=== PATIENT | male | born 1945 | race Asian ===

== ENCOUNTER 2020-12-17 21:53 | Inpatient (IN) | payer BC, OTHER ==
[2020-12-17] MEDS ORDERED: ACETAMINOPHEN 1000 MG/100 ML VIAL (NON FORMULARY) IVPB ONE (22:22)
[2020-12-17] MEDS ORDERED: ONDANSETRON 4 MG/2 ML VIAL IVPUSH ONE (22:22)
[2020-12-17] MEDS ORDERED: ACETAMINOPHEN INJECTION 100 ML IVPB ONE (22:57)
[2020-12-17] MEDS ORDERED: ONDANSETRON 4 MG/2 ML VIAL ONE (22:57)
[2020-12-17 23:07] LABS: BASO % 0.2 % (0-2.0); EOS % 1.7 % (0-4.5); HEMATOCRIT 40.2 % (35.4-49); HEMOGLOBIN 13.9 GM/dL (11.7-16.9); LYMPH % 17.6 % (8-40); MCH 32.8 pg (25.7-33.7); MCHC 34.5 g/dl (32.0-35.9); MEAN CELL VOLUME 94.9 fl (80-96); MEAN PLT VOLUME 7.8 fl (7.5-11.1); MONO % 6.6 % (3.8-10.2); NEUT % 73.9 % (42.8-82.8); PLATELET COUNT 226 K/MM3 (134-434); RBC 4.24 M/mm3 (4.00-5.60); RDW 12.9 % (11.9-15.9)
[2020-12-17 23:37] LABS: CHLORIDE 106 mmol/L (98-107); SODIUM 140 mmol/L (136-145)
[2020-12-17 23:39] LABS: ALBUMIN 3.8 g/dl (3.4-5.0); ANION GAP 8 MMOL/L (8-16); BLOOD UREA NITROGEN 19.8 mg/dL (7-18); CALCIUM 8.7 mg/dL (8.5-10.1); CO2 26 mmol/L (21-32); GLUCOSE,RANDOM 198 mg/dL (74-106)
[2020-12-17 23:40] LABS: LIPASE 136 U/L (73-393)
[2020-12-17 23:43] LABS: CREATININE 0.9 mg/dL (0.55-1.3); SGOT/AST 102 U/L (15-37); SGPT/ALT 84 U/L (13-61)
[2020-12-17 23:44] LABS: BILIRUBIN,TOTAL 0.9 mg/dL (0.2-1); TOT PROT 7.2 g/dl (6.4-8.2)
[2020-12-17] MEDS ORDERED: FAMOTIDINE 20 MG/50 ML IVPB 20 MG/50 ML MG IVPB ONE ×2 (23:45→23:52)
[2020-12-17] MEDS ORDERED: morphine CARPU-JECT 4 MG/1 ML DISP.SYRIN IVPUSH ONE (23:45)
[2020-12-17] MEDS ORDERED: LIDOCAINE VISCOUS 2% ORAL/TOP 20 ML UNIT-DOSE CUP MM ONE (23:45)
[2020-12-17] MEDS ORDERED: MAG HYDROX/AL HYDROX/SIMETH 30 ML UNIT-DOSE CUP PO ONE (23:45)
[2020-12-17 23:46] LABS: ALK PHOS 93 U/L (45-117)
[2020-12-17] MEDS ORDERED: morphine SULFATE 4 MG/ML VIAL ONE (23:51)
[2020-12-17] MEDS ORDERED: LIDOCAINE VISCOUS 2% ORAL/TOP 20 ML UNIT-DOSE CUP ONE (23:51)
[2020-12-17] MEDS ORDERED: MAG HYDROX/AL HYDROX/SIMETH 30 ML UNIT-DOSE CUP ONE (23:52)
[2020-12-18 00:48] LABS: LACTIC ACID 2.1 mmol/L (0.4-2.0)
[2020-12-18] MEDS ORDERED: LACTATED RINGERS SOLUTION 1000 ML INFUS.BAG IV STA (01:10)
[2020-12-18] MEDS ORDERED: ONDANSETRON 4 MG/2 ML VIAL IM PRN (06:48)
[2020-12-18] MEDS ORDERED: MAG HYDROX/AL HYDROX/SIMETH 30 ML UNIT-DOSE CUP PO PRN (06:49)
[2020-12-18 10:28] LABS: BASO % 0.2 % (0-2.0); EOS % 1.6 % (0-4.5); HEMATOCRIT 39.9 % (35.4-49); HEMOGLOBIN 13.7 GM/dL (11.7-16.9); LYMPH % 9.8 % (8-40); MCH 32.9 pg (25.7-33.7); MCHC 34.3 g/dl (32.0-35.9); MEAN CELL VOLUME 95.8 fl (80-96); MEAN PLT VOLUME 7.8 fl (7.5-11.1); MONO % 5.5 % (3.8-10.2); NEUT % 82.9 % (42.8-82.8); PLATELET COUNT 216 K/MM3 (134-434); RBC 4.17 M/mm3 (4.00-5.60); WHITE BLOOD COUNT 9.1 K/mm3 (4.0-10.0)
[2020-12-18] MEDS ORDERED: SODIUM CHLORIDE 500 ML IV STA (10:43)
[2020-12-18 11:06] LABS: CALCIUM 8.7 mg/dL (8.5-10.1)
[2020-12-18 11:07] LABS: ALBUMIN 3.3 g/dl (3.4-5.0); BLOOD UREA NITROGEN 17.6 mg/dL (7-18)
[2020-12-18 11:11] LABS: TOT PROT 6.6 g/dl (6.4-8.2)
[2020-12-18] MEDS ORDERED: SODIUM CHLORIDE 1,000 ML IV SCH (13:45)
[2020-12-18] MEDS ORDERED: MINERAL OIL ENEMA 133 ML ENEMA PR ONE (16:00)
[2020-12-18] MEDS: ENOXAPARIN NA (PORCINE) 40 MG/0.4 ML DISP.SYRIN SQ SCH (18:34)
[2020-12-18 20:18] VITALS: BMI 25.4
[2020-12-18] MEDS ORDERED: PT OWN MED DRAWER 7, Y5N ONE (21:42)
[2020-12-18] MEDS: POLYETHYLENE GLYCOL 3350 119 GM BTL PO SCH (22:32)
[2020-12-19] MEDS ORDERED: PT OWN MED DRAWER 7, Y5N ONE (02:22)
[2020-12-19] MEDS: POLYETHYLENE GLYCOL 3350 119 GM BTL PO SCH ×3 (06:06→21:22)
[2020-12-19 09:00] LABS: BASO % 0.2 % (0-2.0); EOS % 5.1 % (0-4.5); HEMATOCRIT 37.3 % (35.4-49); HEMOGLOBIN 12.8 GM/dL (11.7-16.9); LYMPH % 21.1 % (8-40); MCH 32.6 pg (25.7-33.7); MCHC 34.5 g/dl (32.0-35.9); MEAN CELL VOLUME 94.7 fl (80-96); MEAN PLT VOLUME 7.7 fl (7.5-11.1); MONO % 9.2 % (3.8-10.2); NEUT % 64.4 % (42.8-82.8); PLATELET COUNT 212 K/MM3 (134-434); RBC 3.93 M/mm3 (4.00-5.60); RDW 13.2 % (11.9-15.9); WHITE BLOOD COUNT 7.2 K/mm3 (4.0-10.0)
[2020-12-19] MEDS ORDERED: PEG 3350/NA SULF BICARB CL/KCL 4000 ML SOLN.RECON PO ONE (09:00)
[2020-12-19 09:24] LABS: CHLORIDE 108 mmol/L (98-107); SODIUM 138 mmol/L (136-145)
[2020-12-19 09:27] LABS: ALBUMIN 3.1 g/dl (3.4-5.0); CALCIUM 7.8 mg/dL (8.5-10.1)
[2020-12-19 09:28] LABS: ANION GAP 7 MMOL/L (8-16); BLOOD UREA NITROGEN 14.3 mg/dL (7-18); CO2 24 mmol/L (21-32); GLUCOSE,RANDOM 116 mg/dL (74-106); MAGNESIUM 1.9 mg/dL (1.8-2.4)
[2020-12-19 09:31] LABS: BILIRUBIN,DIRECT 0.5 mg/dL (0.0-0.2); CREATININE 0.8 mg/dL (0.55-1.3); PHOSPHOROUS 2.2 mg/dL (2.5-4.9); SGOT/AST 73 U/L (15-37); SGPT/ALT 150 U/L (13-61)
[2020-12-19 09:32] LABS: BILIRUBIN,TOTAL 1.2 mg/dL (0.2-1)
[2020-12-19 09:33] LABS: ALK PHOS 86 U/L (45-117)
[2020-12-19] MEDS: ENOXAPARIN NA (PORCINE) 40 MG/0.4 ML DISP.SYRIN SQ SCH (10:54)
[2020-12-19] MEDS ORDERED: BISACODYL 5 MG TABLET.DR (FP) PO ONE (18:00)
[2020-12-20] MEDS: POLYETHYLENE GLYCOL 3350 119 GM BTL PO SCH ×2 (05:45→14:14)
[2020-12-20 08:30] LABS: BASO % 0.4 % (0-2.0); EOS % 6.3 % (0-4.5); HEMATOCRIT 41.1 % (35.4-49); HEMOGLOBIN 14.2 GM/dL (11.7-16.9); LYMPH % 25.3 % (8-40); MCH 33.1 pg (25.7-33.7); MCHC 34.6 g/dl (32.0-35.9); MEAN CELL VOLUME 95.4 fl (80-96); MEAN PLT VOLUME 7.6 fl (7.5-11.1); MONO % 9.5 % (3.8-10.2); NEUT % 58.5 % (42.8-82.8); PLATELET COUNT 245 K/MM3 (134-434); RBC 4.31 M/mm3 (4.00-5.60); RDW 13.1 % (11.9-15.9); WHITE BLOOD COUNT 6.8 K/mm3 (4.0-10.0)
[2020-12-20 08:49] LABS: MAGNESIUM 2.1 mg/dL (1.8-2.4)
[2020-12-20 08:52] LABS: CALCIUM 8.7 mg/dL (8.5-10.1); PHOSPHOROUS 2.7 mg/dL (2.5-4.9)
[2020-12-20 08:53] LABS: ALBUMIN 3.5 g/dl (3.4-5.0); BLOOD UREA NITROGEN 14.2 mg/dL (7-18)
[2020-12-20 08:54] LABS: BILIRUBIN,DIRECT 0.3 mg/dL (0.0-0.2)
[2020-12-20 08:56] LABS: CREATININE 0.9 mg/dL (0.55-1.3)
[2020-12-20 08:57] LABS: BILIRUBIN,TOTAL 0.9 mg/dL (0.2-1); TOT PROT 7.3 g/dl (6.4-8.2)
[2020-12-20 12:10] LABS: TRANSGLUTAMINASE IGA < 2 U/mL (0-3); TRANSGLUTAMINASE IGG 4 U/mL (0-5)
[2020-12-20] MEDS ORDERED: NAPH,MB-DB/K PH,MBDB POWDER PACKET PO ONE (14:42)
[2020-12-20] MEDS ORDERED: SENNOSIDES 8.6MG TABLET (FP) PO PRN (18:55)
[2020-12-21 09:06] LABS: BASO % 0.4 % (0-2.0); EOS % 5.9 % (0-4.5); HEMOGLOBIN 13.7 GM/dL (11.7-16.9); MCH 33.2 pg (25.7-33.7); MCHC 35.1 g/dl (32.0-35.9); MEAN CELL VOLUME 94.7 fl (80-96); MEAN PLT VOLUME 7.7 fl (7.5-11.1); MONO % 10.9 % (3.8-10.2); NEUT % 52.8 % (42.8-82.8); PLATELET COUNT 241 K/MM3 (134-434); RBC 4.12 M/mm3 (4.00-5.60); WHITE BLOOD COUNT 5.9 K/mm3 (4.0-10.0)
[2020-12-21] MEDS: ENOXAPARIN NA (PORCINE) 40 MG/0.4 ML DISP.SYRIN SQ SCH (09:16)
[2020-12-21 09:39] VITALS: BP 130/73; PULSE 75; TEMP 97.9
[2020-12-21 09:41] LABS: CREATININE 0.8 mg/dL (0.55-1.3); PHOSPHOROUS 3.5 mg/dL (2.5-4.9)
[2020-12-21 09:42] LABS: BILIRUBIN,TOTAL 0.7 mg/dL (0.2-1)
[2020-12-21 09:43] LABS: TOT PROT 6.5 g/dl (6.4-8.2)
[2020-12-21 09:46] LABS: ALBUMIN 3.2 g/dl (3.4-5.0)
[2020-12-21 09:47] LABS: CALCIUM 8.6 mg/dL (8.5-10.1)
[2020-12-21 09:48] LABS: BLOOD UREA NITROGEN 13.7 mg/dL (7-18)
[2020-12-21 09:50] LABS: BILIRUBIN,DIRECT 0.3 mg/dL (0.0-0.2)
[2020-12-21] MEDS ORDERED: POLYETHYLENE GLYCOL 3350 119 GM BTL PO SCH (10:00)
== END 2020-12-21 15:50 | disposition home or self-care (01) | DRG 389 ==
LOC: JER 21:53 → JERBED 12-18 05:00 → J5S 12-18 16:19
PROVIDERS: ADMIT Hospitalist; ATTEND Internal Medicine
PROC: 0DBL8ZX Excision of Transverse Colon, Via Natural or Artificial Opening Endoscopic, Diagnostic (ICD-10-PCS; 2020-12-20)
PROC: 0DBN8ZX Excision of Sigmoid Colon, Via Natural or Artificial Opening Endoscopic, Diagnostic (ICD-10-PCS; 2020-12-20)
PROC: 0DBH8ZX Excision of Cecum, Via Natural or Artificial Opening Endoscopic, Diagnostic (ICD-10-PCS; 2020-12-20)
PROC: 0W3P8ZZ Control Bleeding in Gastrointestinal Tract, Via Natural or Artificial Opening Endoscopic (ICD-10-PCS; 2020-12-20)
PROC: 0DBH8ZX Excision of Cecum, Via Natural or Artificial Opening Endoscopic, Diagnostic (ICD-10-PCS; principal; 2020-12-20 12:30)
DX: K56.41 Fecal impaction (principal); E87.2 Acidosis; N28.1 Cyst of kidney, acquired; E78.5 Hyperlipidemia, unspecified; R74.8 Abnormal levels of other serum enzymes; E86.0 Dehydration; R10.11 Right upper quadrant pain; K64.8 Other hemorrhoids; K63.5 Polyp of colon
CPT/HCPCS: 36415; 71045-TC-FY; 71275-TC; 74177-TC; 74181-TC; 76705-TC; 80053; 80074; 80076; 82150; 82550; 82728; 82962; 82977; 83010; 83036; 83516; 83540; 83550; 83605; 83615; 83690; 83735; 84100; 84484; 85025; 85045; 86038; 86140; 86803; 88305-TC; 93005; 93010; 97116-GP; 97161-GP; 99285-25; C9803; J0131; U0003; U0005